=== PATIENT | male | born 1955 | race Caucasian/White ===

== ENCOUNTER → 2021-12-12 | Outpatient (REF) | payer MEDICARE, MEDICAID, SELFPAY ==
[2021-12-12 07:43] LABS: AST(SGOT) 15 U/L (15-37); Alanine Aminotransfer ALT/SGPT 32 U/L (16-61); Albumin, Serum 3.5 g/dL (3.2-5.0); Alkaline Phosphatase 97 U/L (45-117); Anion Gap 7 (5-15); BUN 12 mg/dL (7-18); BUN/Creat Ratio 14.6 RATIO (10-20); Chloride 106 mmol/L (98-107); Cholesterol 94 mg/dL (200); Creatinine, Serum 0.82 mg/dL (0.70-1.30); EST Glomerular Filtration Rate 99 mL/min (>60); Est Glom Filt Rate - Afr Amer 120 mL/min (>60); Globulin 3.5 g/dL (2.2-4.2); Glucose 88 mg/dL (74-106); High Density Lipoprotein 38 mg/dL; Sodium Level 137 mmol/L (136-145); Triglycerides 87 mg/dL; Very Low Density Lipoprotein 17 mg/dL (5-40)
[2021-12-12 08:53] LABS: Vitamin D,25 Hydroxy 24.4 ng/mL
== END | disposition home or self-care (01) ==
LOC: OLS.SANC 04:55
PROVIDERS: Visit Provider Internal Medicine
DX: E78.5 Hyperlipidemia, unspecified (principal); E55.9 Vitamin D deficiency, unspecified
CPT/HCPCS: 36415; 80053; 80061; 82306

== ENCOUNTER → 2022-04-20 | Outpatient (REF) | payer SELFPAY | END | disposition home or self-care (01) | LOC: OLS.SANC 05:00 | PROVIDERS: Visit Provider Family Medicine | DX: Z00.00 Encounter for general adult medical examination without abnormal findings (principal) ==

== ENCOUNTER → 2022-04-21 | Outpatient (REF) | payer MEDICARE, MEDICAID, SELFPAY | END | disposition home or self-care (01) | LOC: OLS.SANC 05:00 | PROVIDERS: Visit Provider Internal Medicine | DX: U07.1 COVID-19 (principal) | CPT/HCPCS: 87635; U0003; U0005 ==

== ENCOUNTER 2022-06-11 05:00 | Outpatient (REF) | payer OTHER, MEDICAID, SELFPAY ==
[2022-06-11 11:45] LABS: ALB/GLOB Ratio 1.1 RATIO (0.9-2.4); AST(SGOT) 15 U/L (15-37); Alanine Aminotransfer ALT/SGPT 27 U/L (16-61); Albumin, Serum 3.6 g/dL (3.2-5.0); Alkaline Phosphatase 95 U/L (45-117); Anion Gap 4 (5-15); BUN 11 mg/dL (7-18); BUN/Creat Ratio 12.1 RATIO (10-20); Calcium,Total 8.9 mg/dL (8.5-10.1); Chloride 108 mmol/L (98-107); Cholesterol 100 mg/dL (200); Creatinine, Serum 0.91 mg/dL (0.70-1.30); EST Glomerular Filtration Rate 88 mL/min (>60); Est Glom Filt Rate - Afr Amer 107 mL/min (>60); Globulin 3.4 g/dL (2.2-4.2); Glucose 90 mg/dL (74-106); High Density Lipoprotein 33 mg/dL; Sodium Level 138 mmol/L (136-145); Triglycerides 117 mg/dL; Very Low Density Lipoprotein 23 mg/dL (5-40)
== END 2022-06-11 23:59 | disposition home or self-care (01) ==
LOC: OLS.SANC 05:00
PROVIDERS: Visit Provider Internal Medicine
DX: E78.5 Hyperlipidemia, unspecified (principal); F03.90 Unspecified dementia, unspecified severity, without behavioral disturbance, psychotic disturbance, mood disturbance, and anxiety; E55.9 Vitamin D deficiency, unspecified
CPT/HCPCS: 36415; 80053; 80061; 82306

== ENCOUNTER → 2023-04-30 | Outpatient (REF) | payer OTHER, MEDICAID, SELFPAY ==
[2023-04-30 08:40] LABS: Vitamin D,25 Hydroxy 29.7 ng/mL
[2023-04-30 08:44] LABS: AST(SGOT) 15 U/L (15-37); Alanine Aminotransfer ALT/SGPT 22 U/L (16-61); Albumin, Serum 3.4 g/dL (3.2-5.0); Alkaline Phosphatase 99 U/L (45-117); Anion Gap 6 (5-15); BUN 11 mg/dL (7-18); BUN/Creat Ratio 14.5 RATIO (10-20); Calcium,Total 8.9 mg/dL (8.5-10.1); Chloride 110 mmol/L (98-107); Cholesterol 128 mg/dL (200); Creatinine, Serum 0.76 mg/dL (0.70-1.30); EST Glomerular Filtration Rate 108 mL/min (>60); Est Glom Filt Rate - Afr Amer 131 mL/min (>60); Globulin 3.3 g/dL (2.2-4.2); Glucose 90 mg/dL (74-106); High Density Lipoprotein 36 mg/dL; Potassium 3.8 mmol/L (3.5-5.1); Protein, Total 6.7 g/dL (6.4-8.2); Sodium Level 140 mmol/L (136-145); Triglycerides 119 mg/dL; Very Low Density Lipoprotein 24 mg/dL (5-40)
== END ==
LOC: OLS.SANC 05:00
PROVIDERS: Visit Provider Internal Medicine
DX: F03.90 Unspecified dementia, unspecified severity, without behavioral disturbance, psychotic disturbance, mood disturbance, and anxiety (principal); Z87.820 Personal history of traumatic brain injury; E78.5 Hyperlipidemia, unspecified; E55.9 Vitamin D deficiency, unspecified
CPT/HCPCS: 36415; 80053; 80061; 82306

== ENCOUNTER → 2024-03-13 | Outpatient (REF) | payer OTHER, MEDICAID, SELFPAY ==
[2024-03-13 10:01] LABS: ALB/GLOB Ratio 0.9 RATIO (0.9-2.4); AST(SGOT) 12 U/L (15-37); Alanine Aminotransfer ALT/SGPT 21 U/L (16-61); Albumin, Serum 3.4 g/dL (3.2-5.0); Alkaline Phosphatase 98 U/L (45-117); Anion Gap 5 (5-15); BUN 13 mg/dL (7-18); BUN/Creat Ratio 14.7 RATIO (10-20); Calcium,Total 9.5 mg/dL (8.5-10.1); Chloride 105 mmol/L (98-107); Cholesterol 129 mg/dL (200); Creatinine, Serum 0.89 mg/dL (0.70-1.30); EST Glomerular Filtration Rate 90 mL/min (>60); Est Glom Filt Rate - Afr Amer 109 mL/min (>60); Globulin 3.7 g/dL (2.2-4.2); Glucose 88 mg/dL (74-106); High Density Lipoprotein 33 mg/dL; Potassium 3.9 mmol/L (3.5-5.1); Protein, Total 7.1 g/dL (6.4-8.2); Sodium Level 136 mmol/L (136-145); Triglycerides 111 mg/dL; Very Low Density Lipoprotein 22 mg/dL (5-40); Vitamin D,25 Hydroxy 33.6 ng/mL
== END ==
LOC: OLS.SANC 05:00
PROVIDERS: Visit Provider Internal Medicine
DX: E78.5 Hyperlipidemia, unspecified (principal)
CPT/HCPCS: 36415; 80053; 80061; 82306

== ENCOUNTER → 2024-08-29 | Outpatient (REF) | payer OTHER, MEDICAID, SELFPAY ==
[2024-08-29 09:29] LABS: Absolute Lymphocyte Count 2.56 X10^3/uL (0.83-4.51); Absolute Neutrophil Count 2.5 X10^3/uL (2.0-7.7); Basophil# 0.06 X10^3/uL; Eosinophil# 0.18 X10^3/uL; Hematocrit 41.9 % (40-54); Hemoglobin 13.8 g/dL (13.0-16.5); Lymphocyte # 2.56 X10^3/ul (0.83-4.51); Lymphocyte % 42.7 % (19-41); Mean Corp Hgb Conc 32.9 g/dL (32-36); Mean Corpuscular Hgb 28.9 pg (27.0-32.0); Mean Corpuscular Volume 87.7 fL (80-94); Mean Platelet Vol. 9.2 fl (6.2-12.0); Monocyte# 0.63 X10^3/uL; Monocyte% 10.5 % (0-10); NRBC Flagged by Analyzer 0 % (0-5); Neutrophil # 2.54 X10^3/uL (2.7-7.7); Neutrophil % 42.3 % (47-70); Platelet Count 319 K/mm3 (150-450); RBC Distribution Width CV 13.1 % (11.6-14.6); Red Blood Count 4.78 M/mm3 (4.6-6.2)
[2024-08-29 10:14] LABS: ALB/GLOB Ratio 0.9 RATIO (0.9-2.4); AST(SGOT) 17 U/L (15-37); Alanine Aminotransfer ALT/SGPT 21 U/L (16-61); Albumin, Serum 3.3 g/dL (3.2-5.0); Alkaline Phosphatase 100 U/L (45-117); Anion Gap 5 (5-15); BUN 14 mg/dL (7-18); BUN/Creat Ratio 13.1 RATIO (10-20); Calcium,Total 9.3 mg/dL (8.5-10.1); Chloride 105 mmol/L (98-107); Cholesterol 90 mg/dL (200); Creatinine, Serum 1.07 mg/dL (0.70-1.30); EST Glomerular Filtration Rate 72 mL/min (>60); Est Glom Filt Rate - Afr Amer 88 mL/min (>60); Globulin 3.7 g/dL (2.2-4.2); Glucose 89 mg/dL (74-106); High Density Lipoprotein 32 mg/dL; Magnesium 2.1 mg/dL (1.6-2.6); Potassium 4.3 mmol/L (3.5-5.1); Sodium Level 136 mmol/L (136-145); Triglycerides 109 mg/dL; Very Low Density Lipoprotein 22 mg/dL (5-40)
== END ==
LOC: OLS.SANC 07:15
PROVIDERS: Visit Provider Family Medicine
DX: E78.5 Hyperlipidemia, unspecified (principal); F03.90 Unspecified dementia, unspecified severity, without behavioral disturbance, psychotic disturbance, mood disturbance, and anxiety
CPT/HCPCS: 36415; 80053; 80061; 83735; 85025

== ENCOUNTER → 2024-12-06 | Outpatient (REF) | payer OTHER, MEDICAID, SELFPAY ==
[2024-12-07 09:08] LABS: Mucous, Urine 0 SEEN /hpf (<or=2+); Squamous Epithelial Cells - UA 0 SEEN /hpf (0-5)
[2024-12-07 09:43] LABS: Color, Urine Yellow (Yellow); Glucose, Dipstick Normal (Normal); Ketone-Dipstick Negative (Negative); Leukocyte Esterase-Dipstick 25 /ul (Negative); Nitrite-Dipstick Negative (Negative); Occult Blood-Urine 50 /ul (Negative); Protein-Dipstick 30 mg/dl (Negative); Urine Clarity Sl. Cloudy (Clear); Urine Urobilinogen 4 mg/dl (Normal)
[2024-12-07 09:44] LABS: Urine Bilirubin Dipstick 1 mg/dL (Negative)
[2024-12-07 09:51] LABS: Bacteria 2+ /hpf (None Seen)
[2024-12-07 09:52] LABS: Red Blood Cells-Urine 0-5 SEEN /hpf (0-5); White Blood Cells 0-5 SEEN /hpf (0-5)
== END ==
LOC: OLS.SANC 18:50
PROVIDERS: Visit Provider Family Medicine
DX: R39.9 Unspecified symptoms and signs involving the genitourinary system (principal)
CPT/HCPCS: 81001; 87086